=== PATIENT | female | born 1960 | race Caucasian/White ===

== ENCOUNTER → 2016-08-26 | Outpatient (CLI) | payer BC ==
--- NOTE | 2016-08-27 12:40 | MM ---
Reason for exam: screening (asymptomatic). Last mammogram was performed 5 years and 7 months ago. Physical Findings: A clinical breast exam by your physician is recommended on an annual basis and results should be correlated with mammographic findings. MG Screening Mammo w CAD Bilateral CC and MLO view(s) were taken. Prior study comparison: January 20, 2011, [facility] DIGITAL BILATERAL MAMMOGRAM w/CAD. January 10, 2011, bilateral digital screening mammo w/CAD. There are scattered fibroglandular densities. Finding: There is subtle, indistinct, spiculated architectural distortion located 4 cm from the nipple in the 12 o'clock upper outer quadrant, middle position of the left breast. New finding since January 20, 2011. ASSESSMENT: Incomplete: need additional imaging evaluation, BI-RAD 0 RECOMMENDATION: Special view mammogram of the left breast. If lesion persists on supplemental views, image directed ultrasound is recommended. [facility] will attempt to contact patient to return for supplemental views and ultrasound if indicated.
== END | disposition home or self-care (01) ==
LOC: RADMAMWWP 10:51
PROVIDERS: ATTEND Obstetrics & Gynecology
DX: Z12.31 Encounter for screening mammogram for malignant neoplasm of breast (principal); R92.2 Inconclusive mammogram

== ENCOUNTER → 2016-09-03 | Outpatient (CLI) | payer BC ==
--- NOTE | 2016-09-03 10:41 | MM ---
Reason for exam: additional evaluation requested from abnormal screening. Last mammogram was performed less than 1 month ago. History: Patient is postmenopausal. Physical Findings: Nurse did not find any significant physical abnormalities on exam. MG Work Up Mamm w CAD LT Spot compression CC, spot compression MLO, and ML view(s) were taken of the left breast. Prior study comparison: August 26, 2016, bilateral MG screening mammo w CAD. January 10, 2011, bilateral digital screening mammo w/CAD. Vague residual distortion on compression CC. This finding is changed when compared with previous exams. These results were verbally communicated with the patient and result sheet given to the patient on 09/03/16. ASSESSMENT: Probably benign, BI-RAD 3 RECOMMENDATION: Follow-up diagnostic mammogram of the left breast in 6 months.
== END | disposition home or self-care (01) ==
LOC: RADMAMWWP 09:33
PROVIDERS: ATTEND Obstetrics & Gynecology
DX: R92.8 Other abnormal and inconclusive findings on diagnostic imaging of breast (principal)

== ENCOUNTER → 2017-04-06 | Outpatient (CLI) | payer BC ==
--- NOTE | 2017-04-06 09:02 | MM ---
Reason for exam: follow-up at short interval from prior study. Last mammogram was performed 7 months ago. History: Patient is postmenopausal. Physical Findings: Nurse did not find any significant physical abnormalities on exam. MG Diagnostic Mammo LT w CAD CC and MLO view(s) were taken of the left breast. Prior study comparison: September 03, 2016, left breast MG work up mamm w CAD LT. August 26, 2016, bilateral MG screening mammo w CAD. The breast tissue is heterogeneously dense. This may lower the sensitivity of mammography. There is no discrete abnormality. No significant new findings when compared with previous films. These results were verbally communicated with the patient and result sheet given to the patient on 04/06/17. ASSESSMENT: Probably benign, BI-RAD 3 RECOMMENDATION: Follow-up diagnostic mammogram of both breasts in 6 months. Back on schedule.
== END | disposition home or self-care (01) ==
LOC: RADMAMWWP 07:35
PROVIDERS: ATTEND Obstetrics & Gynecology
DX: R92.8 Other abnormal and inconclusive findings on diagnostic imaging of breast (principal)
CPT/HCPCS: 77065

== ENCOUNTER → 2018-07-01 | Outpatient (CLI) | payer BC ==
--- NOTE | 2018-07-01 23:08 | CONS ---
CONSULTATION DATE OF SERVICE: 07/01/2018 This patient is a 58-year-old lady who has been evaluated in [facility] for obstructive sleep apnea-hypopnea syndrome. HISTORY OF PRESENT ILLNESS/SLEEP-WAKE EVALUATION: The patient has a history of obstructive sleep apnea for 3 years. Since that time she has been on treatment with CPAP every night for the whole night. She is using the machine without any significant problems. No snoring with the machine. Her usual sleep schedule is from 10 p.m. to 5:30 a.m. on working days and from 10 or 11 p.m. until 6:30 or 7 a.m. on weekdays. No problems with falling asleep. She does have a TV in bedroom. She usually sleeps on the side position. She may wake up from sleep up to 2 times without nocturia. No significant sleepiness during the day. [place] Sleepiness Scale is 0. She does not take any naps. No history of hypnagogic hallucinations, sleep paralysis or cataplexy. I checked the patient's CPAP unit. CPAP pressure is 5 cm of water. Usage is 30/30 nights for more than 4 hours. Average usage is 7.9 hours. Leak is 5 L/minute, which is normal. Apnea-hypopnea index 21.9, which is great. PAST MEDICAL HISTORY: Positive for: 1. Hypertension. 2. Hyperlipidemia. 3. Hypothyroidism. PAST SURGICAL HISTORY: None. MEDICATIONS: 1. Benicar. 2. Lipitor. 3. Thyroid. SOCIAL HISTORY: Positive for smoking about one pack a day for 30 years. Quit 6 months ago. Alcohol consumption occasional. FAMILY HISTORY: No chronic medical problems in the family, according to patient. REVIEW OF SYSTEMS: Practically negative. The patient sleeps well through the night with the CPAP. PHYSICAL EXAMINATION: GENERAL: A pleasant lady without distress. VITAL SIGNS: BP 157/84, HR 80, RR 16, height 64 inches, weight 190.2 pounds. Body mass index 36.6, temperature 98.1, oxygen saturation at room air 97%. HEENT: PERRLA, EOMI. Evaluation of oropharynx showed tongue protrudes midline. Extremely low position of soft palate. Mallampati IV. Some restriction of nasal breathing on the left side. NECK: Supple. No JVD. Thyroid is not palpable. Neck measures 16-1/4 inches. LUNGS: Clear to percussion and to auscultation. Good air exchange. No wheezing or rhonchi. HEART: S1, S2 regular. No murmurs, gallops or rubs. ABDOMEN: Slightly obese. EXTREMITIES: No clubbing or cyanosis. CONDITIONER TUMBLER OPERATOR: Awake, alert, and oriented X3. Cranial nerves 2 to 7 intact. There is no fasciculation or atrophy. noted. No focal deficits observed. IMPRESSION: 1. Obstructive sleep apnea-hypopnea syndrome for 3 years. The patient is on treatment with CPAP every night, 100% of the nights for more than 4 hours. She has normal respiration on CPAP, extremely low position of soft palate, wide neck; obstructive sleep apnea-hypopnea syndrome. 2. Obesity with body mass index 36.6. 3. Hypertension. 4. Hyperlipidemia. 5. Hypothyroidism. 6. History of smoking for about 30 pack/years, quit 6 months ago. 7. Menopause for 7 years. PLAN: 1. Patient will continue to use CPAP equipment every night for the whole night. I will increase the pressure to 6-7 cm of water. 2. I wrote a prescription for all necessary CPAP supplies, including nasal pillow mask, heated tube, filters. 3. Losing weight program. 4. Sleep hygiene with regular time in bed for 7-1/2 hours. 5. Precautions related to driving. No driving if feeling any sleepiness. 6. Follow-up visit in one year, or earlier if patient has any problems. Thank you very much for allowing me to participate in the management of your patient. Sincerely, Osmar Ley MD, PhD, FAASM Diplomat of [employer] [employer] [place] [employer] Floor Attendant of [facility] [place] MMODL / MARQUEZN: [id number] /
== END ==
LOC: SLEEP 16:25
PROVIDERS: ATTEND Internal Medicine
DX: G47.33 Obstructive sleep apnea (adult) (pediatric) (principal); E66.9 Obesity, unspecified; I10 Essential (primary) hypertension; E78.5 Hyperlipidemia, unspecified; E03.9 Hypothyroidism, unspecified; Z68.36 Body mass index [BMI] 36.0-36.9, adult; Z87.891 Personal history of nicotine dependence; Z78.0 Asymptomatic menopausal state; Z99.89 Dependence on other enabling machines and devices; Z79.899 Other long term (current) drug therapy
CPT/HCPCS: 99211

== ENCOUNTER → 2019-05-06 | Outpatient (CLI) | payer BC ==
--- NOTE | 2019-05-09 11:21 | MM ---
Reason for exam: screening (asymptomatic). Last mammogram was performed 2 years and 1 month ago. History: Patient is postmenopausal. Took hormonal contraceptives for 15 years beginning at age 16. Physical Findings: A clinical breast exam by your physician is recommended on an annual basis and results should be correlated with mammographic findings. MG Screening Mammo w CAD Bilateral CC and MLO view(s) were taken. Prior study comparison: April 06, 2017, left breast MG diagnostic mammo LT w CAD. September 03, 2016, left breast MG work up mamm w CAD LT. The breast tissue is heterogeneously dense. This may lower the sensitivity of mammography. Left upper outer quadrant middle depth focal asymmetry. Right medial round posterior depth asymmetry (possible mole). ASSESSMENT: Incomplete: need additional imaging evaluation, BI-RAD 0 RECOMMENDATION: Special view mammogram of the left breast. If lesion persists on supplemental views, image directed ultrasound is recommended. [facility] will attempt to contact patient to return for supplemental views and ultrasound if indicated.
== END | disposition home or self-care (01) ==
LOC: RADMAMWWP 08:41
PROVIDERS: ATTEND Obstetrics & Gynecology
DX: Z12.31 Encounter for screening mammogram for malignant neoplasm of breast (principal)
CPT/HCPCS: 77067

== ENCOUNTER → 2019-05-16 | Outpatient (CLI) | payer BC ==
--- NOTE | 2019-05-16 10:49 | MM ---
Reason for exam: additional evaluation requested from abnormal screening. Last mammogram was performed less than 1 month ago. History: Patient is postmenopausal. Took hormonal contraceptives for 15 years beginning at age 16. Took other hormone for 2 years beginning at age 55. Physical Findings: Nurse did not find any significant physical abnormalities on exam. MG Work Up Mamm w CAD LT Spot compression CC, spot compression MLO, LM, and CV view(s) were taken of the left breast. Prior study comparison: May 06, 2019, bilateral MG screening mammo w CAD. April 06, 2017, left breast MG diagnostic mammo LT w CAD. The breast tissue is heterogeneously dense. This may lower the sensitivity of mammography. Right medial round asymmetry on the prior is now marked with a mole marker. Left upper outer quadrant focal asymmetry measures 1.0 x 0.6cm, 7cm from nipple and persists on additional views. These results were verbally communicated with the patient and result sheet given to the patient on 05/16/19. ASSESSMENT: Incomplete: need additional imaging evaluation, BI-RAD 0 RECOMMENDATION: Ultrasound of the left breast.
--- NOTE | 2019-05-16 10:50 | USB ---
Reason for exam: additional evaluation requested from abnormal screening. History: Patient is postmenopausal. Took hormonal contraceptives for 15 years beginning at age 16. Took other hormone for 2 years beginning at age 55. US Breast Workup Limited LT Left limited breast ultrasound including focal area of concern, retroareolar and axilla demonstrates a 7 x 3 x 8mm cystic cluster at 1 o'clock, correlates with mammogram. These results were verbally communicated with the patient and result sheet given to the patient on 05/16/19. ASSESSMENT: Benign, BI-RAD 2 RECOMMENDATION: Return to routine screening mammogram schedule for both breasts.
== END | disposition home or self-care (01) ==
LOC: RADMAMWWP 08:54
PROVIDERS: ATTEND Obstetrics & Gynecology
DX: R92.8 Other abnormal and inconclusive findings on diagnostic imaging of breast (principal)
CPT/HCPCS: 77065

== ENCOUNTER → 2020-05-24 | Outpatient (CLI) | payer BC ==
--- NOTE | 2020-05-25 14:37 | MM ---
Reason for exam: screening (asymptomatic). Last mammogram was performed 1 year ago. History: Patient is postmenopausal. Took hormonal contraceptives for 15 years beginning at age 16. Taking other hormone beginning at age 57. Physical Findings: A clinical breast exam by your physician is recommended on an annual basis and results should be correlated with mammographic findings. MG Screening Mammo w CAD Bilateral CC and MLO view(s) were taken. Prior study comparison: May 06, 2019, bilateral MG screening mammo w CAD. August 26, 2016, bilateral MG screening mammo w CAD. The breast tissue is heterogeneously dense. This may lower the sensitivity of mammography. Finding: There are typically benign round calcifications in the anterior position. There is no discrete abnormality. ASSESSMENT: Benign, BI-RAD 2 RECOMMENDATION: Routine screening mammogram of both breasts in 1 year.
== END ==
LOC: RADMAMWWP 14:31
PROVIDERS: ATTEND Obstetrics & Gynecology
DX: Z12.31 Encounter for screening mammogram for malignant neoplasm of breast (principal); Z78.0 Asymptomatic menopausal state
CPT/HCPCS: 77067

== ENCOUNTER → 2021-09-04 | Outpatient (CLI) | payer BC ==
--- NOTE | 2021-09-04 21:25 | CONS ---
CONSULTATION DATE OF SERVICE: 09/04/2021 61-year-old lady has been re-evaluated in Sleep Center for obstructive sleep apnea- hypopnea syndrome. HISTORY OF PRESENT ILLNESS SLEEP-WAKE EVALUATION: I saw patient more than 3 years ago for treatment of obstructive sleep apnea-hypopnea syndrome. The patient continued to use her CPAP equipment every night for the whole night. According to the patient, she does not snore with the CPAP. No complaints on the mask fitting, pressure or humidification. Her sleep schedule on weekdays from 9:30 p.m. to 5:30 a.m. and on weekends from 12:00 pm to 6:30 a.m. No problems with falling asleep. No TV in bedroom. Still may wake up from sleep up to 4 times. No episodes of nocturia. No history of hypnagogic hallucinations, sleep paralysis or cataplexy. Denied any sleepiness during the day. [place] Sleepiness Scale is 0. PAST MEDICAL HISTORY: Positive for hypertension, hyperlipidemia, hypothyroidism. PAST SURGICAL HISTORY: None. SOCIAL HISTORY: Positive for smoking for about 35 pack years on and off. Presently she smokes. Alcohol consumption occasional. CURRENT MEDICATIONS: The patient did not bring list of her medications, Synthroid and medication for blood pressure. Presently, she is not on any medications for decreasing of cholesterol. FAMILY HISTORY: Patient denied any chronic family history problems. REVIEW OF SYSTEMS: The patient denied any significant problems, presently sleeps well with CPAP. PHYSICAL EXAMINATION: GENERAL: Patient in no distress. BP 166/84, HR 76, RR 16, height 5 feet 4 inches, weight 194.4, temperature 97.8, oxygen saturation at room air 96%. Oropharynx: Extremely low position of soft palate, Mallampati 4. NECK: Supple, no JVD. Thyroid is not palpable. LUNGS: Clear to percussion and to auscultation. Good air exchange. No wheezing or rhonchi. HEART: S1, S2 regular. No murmurs, gallops, or rubs. ABDOMEN: Slightly obese. Soft and nontender. Bowel sounds are present. No organomegaly appreciated. EXTREMITIES: No clubbing or cyanosis. LABORATORY APPARATUS GLASS GRINDER: Awake, alert, and oriented X3. Cranial nerves 2 to 7 intact. There is no fasciculation or atrophy. noted. No focal deficits observed. I checked CPAP unit, pressure is 6 cm of water. Usage is 30/30 nights for more than 4 hours. Average usage 8.2 hours per night. Leak is 12 L/minute, which is acceptable. Apnea-hypopnea index is only 0.7 which is absolutely normal. IMPRESSION: 1. Obstructive sleep apnea-hypopnea syndrome for about 6 years. The patient demonstrated 100% compliance with treatment. Normal respiration on CPAP, benefitting from treatment. 2. Obesity; body mass index 33.2. 3. Hypertension. 4. History of hyperlipidemia. 5. History of hypothyroidism. 6. History of smoking for about 35 years on and off, presently smokes. 7. Menopause. PLAN: 1. Patient will continue to use CPAP equipment with the same pressure. 2. Losing weight. 3. Sleep hygiene with regular time in bed for 7-1/2 to 8 hours. 4. No driving if feeling sleepiness. 5. Prescription for all necessary CPAP supplies, including nasal pillow, mask, tube, filters have been written. Air filter has to be changed immediately. 6. Follow-up visit in 1 year or earlier if patient has any problems. Thank you very much for allowing me to participate in management of your patient. Sincerely, Osmar Ley MD, PhD, FAASM Diplomat of [place] [employer] Sleep Medicine Board of [place] [employer] Home Improvement Contractor of [facility] [place] MMRIANL / MARQUEZN: [id number] /
== END ==
LOC: SLEEP 16:22
PROVIDERS: ATTEND Internal Medicine
DX: G47.33 Obstructive sleep apnea (adult) (pediatric) (principal); E66.9 Obesity, unspecified; I10 Essential (primary) hypertension; E78.5 Hyperlipidemia, unspecified; E03.9 Hypothyroidism, unspecified; F17.200 Nicotine dependence, unspecified, uncomplicated; Z78.0 Asymptomatic menopausal state; Z68.33 Body mass index [BMI] 33.0-33.9, adult; Z79.890 Hormone replacement therapy
CPT/HCPCS: 99211

== ENCOUNTER → 2021-10-08 | Outpatient (CLI) | payer BC ==
--- NOTE | 2021-10-08 17:44 | CT ---
EXAMINATION TYPE: CT brain wo/w con CT DLP: 2256.60 mGycm, Automated exposure control for dose reduction was used. DATE OF EXAM: 10/08/2021 5:36 PM COMPARISON: None CLINICAL INDICATION:Female, 61 years old with history of G45.9 TRANSIENT CEREBRAL ISCHEMIC ATTACK, UN SPECIF; PHH, Possible transient cerebral ischemic attack Thursday. Pt became dizzy, RT side facial droo piness, currently feels wiped out. Stat hold and call. TECHNIQUE: Axial CT images of the brain were obtained with coronal and sagittal reformats created and reviewed. Contrast used:100 mL of Isovue 300 with IV Contrast, Oral contrast used: none. FINDINGS: Extra-axial spaces: No abnormal extra-axial fluid collections. Ventricular system: Within normal limits Cerebral parenchyma: No acute intraparenchymal hemorrhage or mass effect. The machado-white junction is well differentiated. No abnormal enhancement is seen after the administration of intravenous contras t. No abnormal postcontrast enhancement. Cerebellum: Unremarkable. Mass effect: No evidence of midline shift. Intracranial vasculature: Atherosclerotic calcifications of the intracranial vessels. Soft tissues: Normal. Calvarium/osseous structures: No depressed skull fracture. Paranasal sinuses and mastoid air cells: Scattered paranasal sinus disease. Visualized orbits: Orbital contents are intact. IMPRESSION: No acute intracranial process. No evidence for intracranial mass or abnormal postcontrast enhancement .
== END | disposition home or self-care (01) ==
LOC: RADCTMAIN 16:54
PROVIDERS: ATTEND Family Medicine
DX: G45.9 Transient cerebral ischemic attack, unspecified (principal)
CPT/HCPCS: 70470; Q9967

== ENCOUNTER → 2021-12-03 | Outpatient (CLI) | payer BC ==
--- NOTE | 2021-12-04 06:57 | US ---
EXAMINATION TYPE: US thyroid st tissue head/neck DATE OF EXAM: 12/03/2021 COMPARISON: Carotid US CLINICAL HISTORY: E04.1 THYROID NODULE. Nodule seen on carotid ultrasound. Patient is currently takin g thyroid medication. GLAND SIZE: Right Lobe: 4.6 x 0.9 x 1.3 cm Overall Parenchyma: Appears slightly heterogeneous. Left Lobe: 4.6 x 1.4 x 1.4 cm Overall Parenchyma: Appears slightly heterogeneous. Isthmus Thickness: 0.24 cm NODULES RIGHT: # of nodules measured on right: 0 LEFT: # of nodules measured on left: 1 1. 1.3 X 1.3 x 0.7 cm, mid medial, mixed cystic and solid nodule, which is wider than tall, with sm ooth margins, without echogenic foci. Prior size: 1.2 x 1.2 x 0.8 cm ISTHMUS: # of nodules measured in the isthmus: 0 Bilateral neck scanned, no evidence of lymphadenopathy. IMPRESSION: Stable glandular heterogeneity and nonspecific nodularity. 2017 ACR TI-RADS LEVEL: *Highest TI-RADS level nodule reported
== END | disposition home or self-care (01) ==
LOC: RADUSWWP 16:08
PROVIDERS: ATTEND Family Medicine
DX: E04.1 Nontoxic single thyroid nodule (principal)
CPT/HCPCS: 76536

== ENCOUNTER 2021-12-31 12:24 | Day surgery (SDC) | payer BC ==
[2021-12-31 12:38] VITALS: BP 170/76; PULSE 75; RESP 16; TEMP 97.7
--- NOTE | 2021-12-31 14:41 | US ---
ULTRASOUND GUIDED FNA THYROID BIOPSY: CLINICAL HISTORY: Request for left-sided thyroid nodule FNA FINDINGS: The procedure was explained to the patient. The risks, complications, benefits and alternatives were discussed and any questions were answered. Informed consent was obtained. Patient was placed supin e on the ultrasound table and prepped and draped in the usual sterile fashion. Utilizing a 25 gauge needle, five passes were made into the requested left thyroid nodule. Patient was stable throughout the procedure. Pathology is pending. All elements of maximal barrier technique were utilized. IMPRESSION: 1. Successful ultrasound guided FNA thyroid biopsy.
== END 2021-12-31 14:15 | disposition home or self-care (01) ==
LOC: RADPROMAIN 12:24
PROVIDERS: ATTEND Family Medicine
DX: E04.1 Nontoxic single thyroid nodule (principal)
CPT/HCPCS: 10005; 88173; 88305

== ENCOUNTER → 2022-09-03 | Outpatient (CLI) | payer BC ==
--- NOTE | 2022-09-03 17:30 | P.PN ---
Subjective DATE: 09/03/2022 FOLLOW UP VISIT. Patient with obstructive sleep apnea hypopnea syndrome return to sleep center for follow-up visit. Information from previous visit have been reviewed. Patient is using PAP equipment every night for the whole night, getting PAP supplies in time. The patient does not have significant problems with the mask, PAP unit and humidification. [place] sleepiness scale is 0. I checked information from PAP unit. PAP unit pressure 6 cm H2O. Usage is 95 % for more then 4 hours, average 8.6 hours per night. Leak is 10 l/m, which is in acceptable range. Apnea Hypopnea Index is 0.7, which is normal. CPAP unit is old, some parts broken, needs to be replaced. MEDICATIONS:1. Levothyroxine 75 g once a day 2. Olmesartan/hydrochlorothiazide 20-12.5 mg once a day 3. Atorvastatin 40 mg once a day 4. [] 5. [] 6. [] 7. [] 8. [] During physical exam: GENERAL: A pleasant patient without any distress. VITAL SIGNS: BP 152/83, HR 77, RR 12, weight 188.2, temperature 97.6, oxygen saturation at room air 100 % . HEENT: PERRLA, EOMI.low position of soft palate, Mallapati 4 . NECK: Supple. No JVD. LUNGS: Clear to percussion and to auscultation. Good air exchange. No wheezing or rhonchi. HEART: S1, S2 regular. ABDOMEN: Soft and nontender.[] EXTREMITIES: No clubbing or cyanosis. REAL ESTATE AGENT: Awake, alert, and oriented x3. No focal deficit. Impressions: 1. Obstructive sleep apnea-hypopnea syndrome. Patient demonstrated great compliance with treatment, benefiting from treatment. 2. Hypertension. 3. Hypothyroidism. 4. Mild obesity BMI 32.2. 5. History of hyperlipidemia. 6. History of smoking for about 35 years. 7. []. 8. []. 9. []. 10. []. 11.[]. 12.[]. Plan: 1. Prescription to replace CPAP unit. Continue using PAP equipment every night for the whole night. 2. To change air filter at least 1-2 times per month. 3. PAP unit should stay lower then position of the head. 4. Advised patient to remove all remaining water from humidifier canister daily and make it dry after each usage. Refill canister with fresh distilled water before each usage. 5. Sleep hygiene with regular time in bed for at least 8 hours. 6. Precautions related to driving. No driving if feel any sleepiness. 7. I will maintain prescription for PAP supplies including mask, tube, filters. 8. Follow up visit in 1 months after patient received new CPAP unit. 9. Watching weight. Thank you very much for allowing me to participate in the management of your patient. Osmar Ley MD, PhD, FAASM. Diplomat of [place] [employer], Sleep Medicine Board by [place] [employer] Document Management Technician of [facility] [place]
== END ==
LOC: 3 N SLEEP 16:05
PROVIDERS: ATTEND Internal Medicine
DX: G47.33 Obstructive sleep apnea (adult) (pediatric) (principal); E03.9 Hypothyroidism, unspecified; E66.9 Obesity, unspecified; E78.5 Hyperlipidemia, unspecified; Z79.890 Hormone replacement therapy; Z68.32 Body mass index [BMI] 32.0-32.9, adult; Z87.891 Personal history of nicotine dependence
CPT/HCPCS: 99212

== ENCOUNTER → 2023-01-05 | Outpatient (CLI) | payer BC ==
--- NOTE | 2023-01-06 21:36 | CA ---
Transthoracic Echo Report Name: Deacon Dunham Age: 62 Gender: F : 1960 Exam Date: 01/05/2023 16:07 Exam Location: [facility] Ht (in): 64 Wt (lb): 180 Ordering Physician: Leo Espino MD Attending/Referring Phys: [id number] Gi Technician Sandie Horta [facility] Procedure CPT: Indications: R01.1 Murmur Cardiac Hx: Technical Quality: Fair Contrast 1: Total Dose (mL): Contrast 2: Total Dose (mL): MEASUREMENTS (Male / Female) Normal Values 2D ECHO LV Diastolic Diameter PLAX 4.0 cm 4.2 - 5.9 / 3.9 - 5.3 cm LV Systolic Diameter PLAX 2.6 cm IVS Diastolic Thickness 0.8 cm 0.6 - 1.0 / 0.6 - 0.9 cm LVPW Diastolic Thickness 0.8 cm 0.6 - 1.0 / 0.6 - 0.9 cm LV Relative Wall Thickness 0.4 LVOT Diameter 2.0 cm M-MODE Aortic Root Diameter MM 2.3 cm LA Systolic Diameter MM 3.5 cm LA Ao Ratio MM 1.5 AV Cusp Separation MM 1.5 cm DOPPLER AV Peak Velocity 234.2 cm/s AV Peak Gradient 21.9 mmHg AV Mean Velocity 151.4 cm/s AV Mean Gradient 10.0 mmHg AV Velocity Time Integral 36.7 cm LVOT Peak Velocity 174.4 cm/s LVOT Peak Gradient 12.2 mmHg LVOT Velocity Time Integral 35.5 cm LVOT Stroke Volume 106.4 cm??? LVOT Stroke Volume Index 56.9 ml/m??? LVOT Cardiac Index 4476.9 cm???/min???m??? AV Area Cont Eq vti 2.9 cm??? AV Area Cont Eq pk 2.2 cm??? Mitral E Point Velocity 69.2 cm/s Mitral A Point Velocity 79.7 cm/s Mitral E to A Ratio 0.9 MV Deceleration Time 223.4 ms LV E' Lateral Velocity 12.8 cm/s Mitral E to LV E' Lateral Ratio 5.4 LV E' Septal Velocity 9.3 cm/s Mitral E to LV E' Septal Ratio 7.4 TR Peak Velocity 263.3 cm/s TR Peak Gradient 27.7 mmHg Right Atrial Pressure 3.0 mmHg Pulmonary Artery Systolic Pressu 30.7 mmHg Right Ventricular Systolic Press 30.7 mmHg FINDINGS Left Ventricle Severely increased left ventricular wall thickness. Left ventricular cavity size normal. Normal left ventricular systolic function with no obvious regional wall motion abnormalities. Left ventricular ejection fraction is estimated at 60-65%. Hyperdynamic left ventricular systolic function. Right Ventricle Upper normal right ventricular size. Mild pulmonary hypertension. Right Atrium Normal right atrial size. Left Atrium Mild left atrial dilatation Mitral Valve Structurally normal mitral valve. Mild mitral regurgitation. Aortic Valve Trileaflet aortic valve. Diffuse thickening (sclerosis) of the aortic valve cusps with reduced excursion. No aortic regurgitation. Tricuspid Valve Structurally normal tricuspid valve. Trace-mild tricuspid regurgitation. Pulmonic Valve Pulmonic valve not well visualized. Mild pulmonic regurgitation. Pericardium No pericardial effusion. Aorta Normal size aortic root. CONCLUSIONS Small LV cavity Severe concentric LVH LVEF estimated at 60-65% No obvious regional wall motion abnormality Increased LVOT velocities without any evidence of obstruction Sclerotic aortic valve without stenosis Mild left atrial dilatation Previewed by: Dr Apolinar Quinn (Electronically Signed) Final Date: 06 January 2023 21:35
== END | disposition home or self-care (01) ==
LOC: RADECHMAIN 16:00
PROVIDERS: ATTEND Family Medicine
DX: R01.1 Cardiac murmur, unspecified (principal); I51.7 Cardiomegaly
CPT/HCPCS: 93306

== ENCOUNTER → 2023-07-14 | Outpatient (CLI) | payer BC ==
--- NOTE | 2023-07-15 08:29 | MM ---
Reason for Exam: Screening (asymptomatic). Last mammogram was performed 3 year(s) and 1 month(s) ago. Patient History: Menarche at age 11. First Full-Term at age 24. Postmenopausal. Hormonal Contraceptives, starting at age 16 for 15 years. Risk Values: Rhona 5 year model risk: 1.5%. NCI Lifetime model risk: 6.6%. Prior Study Comparison: 05/06/2019 Bilateral Screening Mammogram, [facility]. 05/16/2019 Left Diagnostic Mammogram, [facility]. 05/24/2020 Bilateral Screening Mammogram, [facility]. Tissue Density: The breasts are almost entirely fatty. Findings: Analyzed By CAD. Right breast: Scattered density is seen in the right midlung mass effect. Some of these are more dense than prior. Including a 4 mm lesion 9.3 cm from nipple. Spot compression imaging of this region recommended. Left breast: There is no suspicious group of microcalcifications or new suspicious mass. Overall Assessment: Incomplete: need additional imaging evaluation, BI-RAD 0 Management: Diagnostic Mammogram of the right breast. [facility] will attempt to contact patient to return for supplemental views and ultrasound if indicated. Patient should continue monthly self-breast exams. A clinical breast exam by your physician is recommended on an annual basis. This exam should not preclude additional follow-up of suspicious palpable abnormalities. Note on Rhona scores and lifetime risk: 1. A Rhona score greater than 3% is considered moderate risk. If this is the case, consider specialist referral to assess eligibility for a risk reducing agent. 2. If overall lifetime risk for the development of breast cancer is 20% or higher, the patient may qualify for future screening with alternating mammogram and breast MRI. Electronically signed and approved by: Ke Snyder DO
== END | disposition home or self-care (01) ==
LOC: RADMAMWWP 14:00
PROVIDERS: ATTEND Obstetrics & Gynecology
DX: Z12.31 Encounter for screening mammogram for malignant neoplasm of breast (principal); Z78.0 Asymptomatic menopausal state
CPT/HCPCS: 77067

== ENCOUNTER → 2023-07-27 | Outpatient (CLI) | payer BC ==
--- NOTE | 2023-07-27 08:27 | MM ---
Reason for Exam: Additional evaluation requested from abnormal screening. Last screening mammogram was performed less than 1 month ago. Patient History: Menarche at age 11. First Full-Term at age 24. Postmenopausal. Hormonal Contraceptives, starting at age 16 for 15 years. Risk Values: Rhona 5 year model risk: 1.5%. NCI Lifetime model risk: 6.6%. Tissue Density: Right: There are scattered areas of fibroglandular density. Findings: Analyzed By CAD. The questioned area of upper quadrant nodular asymmetric density becomes less defined on additional views. The appearance becomes similar to prior studies. Precautionary 6 month follow-up recommended. Overall Assessment: Probably benign, BI-RAD 3 Management: Diagnostic Mammogram of the right breast in 6 months. Results were given to the patient verbally at the time of exam. Patient should continue monthly self-breast exams. A clinical breast exam by your physician is recommended on an annual basis. This exam should not preclude additional follow-up of suspicious palpable abnormalities. Note on Rhona scores and lifetime risk: 1. A Rhona score greater than 3% is considered moderate risk. If this is the case, consider specialist referral to assess eligibility for a risk reducing agent. 2. If overall lifetime risk for the development of breast cancer is 20% or higher, the patient may qualify for future screening with alternating mammogram and breast MRI. Electronically signed and approved by: Per Martinez M.D. Radiologist
== END | disposition home or self-care (01) ==
LOC: RADMAMWWP 07:55
PROVIDERS: ATTEND Obstetrics & Gynecology
DX: R92.8 Other abnormal and inconclusive findings on diagnostic imaging of breast (principal); R92.321 Mammographic fibroglandular density, right breast; Z78.0 Asymptomatic menopausal state
CPT/HCPCS: 77061; 77065

== ENCOUNTER → 2024-07-14 | Outpatient (CLI) | payer BC ==
--- NOTE | 2024-07-14 08:34 | MM ---
Reason for Exam: Screening (asymptomatic). Last mammogram was performed 1 year(s) and 1 month(s) ago. Patient History: Menarche at age 11. First Full-Term at age 24. Postmenopausal. Hormonal Contraceptives, starting at age 16 for 15 years. Risk Values: Rhona 5 year model risk: 1.6%. NCI Lifetime model risk: 6.4%. Prior Study Comparison: 05/24/2020 Bilateral Screening Mammogram, [facility]. 07/14/2023 Bilateral MG screening mammo w CAD, [facility]. 07/27/2023 Right MG 3D work up w/cad RT, [facility]. Tissue Density: There are scattered areas of fibroglandular density. Findings: Analyzed By CAD. There are a few benign-appearing round calcifications bilaterally redemonstrated. Benign-appearing bilateral axillary lymph nodes are noted. There is no suspicious group of microcalcifications or new suspicious mass in either breast. Overall Assessment: Benign, BI-RAD 2 Management: Screening Mammogram of both breasts in 1 year. . Patient should continue monthly self-breast exams. A clinical breast exam by your physician is recommended on an annual basis. This exam should not preclude additional follow-up of suspicious palpable abnormalities. Note on Rhona scores and lifetime risk: 1. A Rhona score greater than 3% is considered moderate risk. If this is the case, consider specialist referral to assess eligibility for a risk reducing agent. 2. If overall lifetime risk for the development of breast cancer is 20% or higher, the patient may qualify for future screening with alternating mammogram and breast MRI. [facility], , 07/14/2024 8:30 AM. Electronically signed and approved by: Trent Lewis M.D.
== END | disposition home or self-care (01) ==
LOC: RADMAMWWP 08:11
PROVIDERS: ATTEND Family Medicine
DX: Z12.31 Encounter for screening mammogram for malignant neoplasm of breast (principal); R92.323 Mammographic fibroglandular density, bilateral breasts; Z78.0 Asymptomatic menopausal state; Z92.0 Personal history of contraception
CPT/HCPCS: 77063; 77067